=== PATIENT | male | born 1965 | race Caucasian/White ===

== ENCOUNTER 2025-02-25 18:39 | Emergency (ER) | payer OTHER ==
[~2025-02-25] VITALS: Ht 180.3 cm; Wt 104.3 kg
[2025-02-25] MEDS ORDERED: ACETAMINOPHEN 325 MG TAB ONE (19:31)
[2025-02-25] MEDS: ACETAMINOPHEN 325 MG TAB PO ONE (19:40)
[2025-02-25 19:59] LABS: CORONAVIRUS COVID-19 AG POSITIVE (NEGATIVE)
[2025-02-25 21:48] VITALS: PULSE 91; RESP 18; TEMP 98.3; O2SAT 95
[2025-02-25] MEDS ORDERED: ONDANSETRON ODT4 MG SL (21:51)
[2025-02-25] MEDS ORDERED: PAXLOVID 300-11 EAC1 PO (21:51)
== END 2025-02-25 21:59 | disposition home or self-care (01) ==
LOC: ER 21:43
DX: R50.9 Fever, unspecified (principal); U07.1 COVID-19; R05.9 Cough, unspecified; I10 Essential (primary) hypertension; E11.9 Type 2 diabetes mellitus without complications; B20 Human immunodeficiency virus [HIV] disease; E78.5 Hyperlipidemia, unspecified
CPT/HCPCS: 71046; 93005; 99283